=== PATIENT | female | born 1975 | race Two or more races ===

== ENCOUNTER → 2023-01-11 | Emergency (ER) | payer OTHER ==
[~2023-01-11] VITALS: Ht 167.6 cm; Wt 47.6 kg
[~2023-01-11] MED LIST: IBUP-1953 PO; IBUPROFEN 600 MG TABLET ONE; IBUPROFEN 600 MG TABLET PO ONE
[2023-01-11 11:47] VITALS: BP 121/92; TEMP 98.6; O2SAT 100
== END | disposition home or self-care (01) ==
LOC: ER 11:38
DX: S63.501A Unspecified sprain of right wrist, initial encounter (principal); Z88.2 Allergy status to sulfonamides; Z88.8 Allergy status to other drugs, medicaments and biological substances; W18.09XA Striking against other object with subsequent fall, initial encounter; Y93.89 Activity, other specified; Y92.89 Other specified places as the place of occurrence of the external cause; Y99.8 Other external cause status
CPT/HCPCS: 99283; 73110; J7030